=== PATIENT | female | born 1985 | race Caucasian/White ===

== ENCOUNTER 2017-08-31 19:19 | Inpatient (IN) ==
[2017-08-31] MEDS ORDERED: ONDANSETRON 4 MG/2 ML VIAL ONE (19:49)
[2017-08-31] MEDS ORDERED: HYDROmorphone 2 MG/1 ML ONE ×3 (19:49→23:07)
[2017-08-31 20:10] LABS: BASOPHILS # (AUTO) 0.04 10*3/UL; BASOPHILS % (AUTO) 0.2 % (0-1); EOSINOPHILS # (AUTO) 0.09 10*3/UL; EOSINOPHILS % (AUTO) 0.4 % (0-8); Hematocrit [HCT] 35.2 % (37.0-47.0); Hemoglobin [HGB] 12.1 g/dL (12.0-16.0); MEAN CORPUSCULAR HEMOGLOBIN 31.2 PG (27-31); MEAN CORPUSCULAR HGB CONC 34.4 g/dL (33-37); MEAN CORPUSCULAR VOLUME 90.7 FL (81-99); MONOCYTES # (AUTO) 1.51 10*3/UL (0.3-0.8); MONOCYTES % (AUTO) 6.4 % (5-15); NEUTROPHILS # (AUTO) 19.96 10*3/UL; NEUTROPHILS % (AUTO) 84.8 % (50-80); RED BLOOD COUNT 3.88 10^6/uL (4.20-5.40)
[2017-08-31 20:16] LABS: BLOOD UREA NITROGEN 10 mg/dL (7-22); BUN/CREATININE RATIO 14.28 (6-20); SERUM ALBUMIN 3.7 g/dL (3.5-4.8)
[2017-08-31 20:24] LABS: PLATELET MORPHOLOGY COMMENT NORMAL MORPHOLOGY (NORM); RBC MORPHOLOGY COMMENT NORMAL MORPHOLOGY (NORM); WBC MORPHOLOGY COMMENT NORMAL MORPHOLOGY (NORM)
[2017-08-31] MEDS ORDERED: FAMOTIDINE 20 MG/2 ML VIAL IVP ONE (20:25)
[2017-08-31] MEDS ORDERED: Lactated Ringers 2,000 ML PRIMARY IV ONE (20:25)
[2017-08-31] MEDS ORDERED: ceFAZolin Inj 2gm (Premix) 2 GM/50 ML BAG IV ONE (20:25)
[2017-08-31] MEDS ORDERED: Metoclopramide Inj 10 MG/2 ML VIAL ONE (20:25)
[2017-08-31] MEDS ORDERED: CITRIC ACID/SODIUM CITRATE 30 ML CUP PO ONE (20:25)
[2017-08-31] MEDS ORDERED: PENICILLIN G POTASSIUM 5,000,000 UNIT SDV IV ONE (20:35)
[2017-08-31] MEDS ORDERED: Sodium Chloride 0.9% 250 ML IV ONE (20:36)
[2017-08-31] MEDS ORDERED: Magnesium Sulfate 4gm (Premix) 4 GM/100 ML BAG IV ONE (20:37)
[2017-08-31] MEDS ORDERED: fentaNYL Inj 250 MCG/5 ML VIAL ONE (20:40)
[2017-08-31] MEDS ORDERED: MIDAZOLAM 5 MG/1 ML ONE (20:41)
[2017-08-31] MEDS ORDERED: Oxytocin 20 Units + LR 20 UNIT/1,000 ML BAG IV ONE ×3 (20:44→21:40)
[2017-08-31] MEDS ORDERED: Sodium Chloride 0.9% 1,000 ML ONE (20:52)
[2017-08-31] MEDS ORDERED: Magnesium Sulfate (Premix) 20 GM/500 ML BAG IV ONE (20:53)
[2017-08-31] MEDS ORDERED: ePHEDrine Inj 50 MG/ML AMP ONE (20:58)
[2017-08-31] MEDS ORDERED: PHENYLEPHRINE 10,000 MCG/1 ML VIAL ONE (20:59)
[2017-08-31] MEDS ORDERED: MISOPROSTOL 200 MCG TABLET ONE (21:25)
[2017-08-31] MEDS ORDERED: AZITHROMYCIN 500 MG VIAL IV ONE (21:41)
[2017-08-31] MEDS ORDERED: MISOPROSTOL 200 MCG TABLET RECTAL ONE (21:46)
[2017-08-31] MEDS ORDERED: SUGAMMADEX SODIUM 200 MG/2 ML VIAL IV ONE (22:07)
[2017-08-31] MEDS ORDERED: Famotidine Inj 20 MG in Normal Saline Flush 10 ML IVP PRN (22:17)
[2017-08-31] MEDS ORDERED: Naloxone Inj 0.01 MG, Sodium Chloride 0.9% vial 1 ML IVP PRN ×2 (22:17)
[2017-08-31] MEDS ORDERED: DIPH,PERTUSS,TET(ADACEL) VAC/PF 0.5 ML (Tdap) IM ONE (22:17)
[2017-08-31] MEDS ORDERED: CALCIUM CARBONATE 500 MG (TUMS) CHEWABLE TABLET PO PRN (22:17)
[2017-08-31] MEDS ORDERED: diphenhydrAMINE 50 MG/1 ML VIAL IV PRN (22:17)
[2017-08-31] MEDS ORDERED: ONDANSETRON 4 MG/2 ML VIAL IVP PRN ×2 (22:17→22:38)
[2017-08-31] MEDS ORDERED: NORMAL SALINE 10 ML SYRINGE FLUSH IVP PRN ×2 (22:17→22:38)
[2017-08-31] MEDS ORDERED: Nalbuphine Inj 20 MG/ML Ampule IVP PRN (22:17)
[2017-08-31] MEDS ORDERED: LANOLIN HPA 40 GM TUBE TOPICAL PRN (22:17)
[2017-08-31] MEDS ORDERED: diphenhydrAMINE 25 MG CAPSULE PO PRN (22:17)
[2017-08-31] MEDS ORDERED: NALOXONE 0.4 MG/1 ML VIAL IVP PRN ×2 (22:17→22:52)
--- NOTE | 2017-08-31 22:27 | OB.OP.NOTE ---
Operative Report Surgeon: Piero/Aren Technician Test Systems: Mo Garcia MD Anesthesia Type: General Anesthesia Provider: Anjali Frazier CRNA Surgery Date: 08/31/17 Preoperative Diagnosis: IUP about 25 weeks gestation. labor with advanced cervical dilation. Vaginal bleeding with Presumed placental abruption. Nonreassuring status with variable decelerations. The patient did not have care. by patient report. Baby was in footling breech presentation. Patient informed us that she had been using narcotics-Dilaudid today. Postoperative Diagnosis: Same. Confirmed placental abruption with anterior placenta with 200-300 mL of blood clot Procedure: General endotracheal anesthesia. Primary low transverse section with J incision on left side of low transverse incision. Delivery of double footling breech baby in 6 minutes Estimated Blood Loss (mL): 800 Fluids: 3000 mL LR. 1000 mL LR with Pitocin; second thousand cc of LR was started before the patient was transferred to the PACU. 225 mL of clear yellow urine was obtained. EBL was 800 mL. Mefoxin 2 g IV was given before surgery. Azithromycin 500 mg IV was given after cord clamp. Penicillin IV 5 million units was given when it was thought that the patient might deliver vaginally. Magnesium sulfate 4 g bolus was given 30 minutes prior to delivery for neuroprotection Complications: None apparent Findings at Surgery: Male infant with weight approx 750 grams and Apgars pending. ABG- pH 7.09 pCO2 66 HCO3 20 BE -10 Indications for the Procedure: The patient is a 32-year-old who presented first to the ER with low back and abdominal pain. Once they realized she was she was taken up to labor and delivery with vaginal bleeding and abdominal pain and contractions. The patient reported no care, was unsure of gestational age. The patient's cervix was found to be completely dilated with a bulging bag. Limited ultrasound showed the baby to be in a double footling breech presentation. It was thought that the patient had a placental abruption by her symptoms and by the Limited transabdominal ultrasound. The patient did inform Dr. Harry that she did take Dilaudid and did use narcotics during her . The patient was typed and crossed. The transport team was contacted and the transport was initiated for the NICU team to fly to [place], [place] to care for this baby and to take the baby to the NICU in [place], [place]. Although the patient was a with 4 vaginal deliveries, with the double footling breech presentation at around possibly 25 weeks gestation-the patient was not sure- the patient was consented by Dr. Harry for a section. Description of Procedure: The patient was brought to the operating room after risks, benefits, alternatives and indications were discussed with the patient and consent form had been signed. The patient had a Forbes catheter placed and urine was sent for urine drug screen. The patient was then placed in the dorsal supine position with a leftward tilt. The patient was then prepped sterilely. The patient was then draped sterilely. The patient then underwent general endotracheal anesthesia without complication. Anesthesia informed as when we could start the surgery. Dr. Harry incised a Pfannenstiel skin incision about 2 cm above the symphysis pubis in an arc. Then worked our way down to the fascia using the knife and then the Bovie and blunt dissection. The fascia was nicked in the midline and then extended laterally bilaterally. Yobani clamps were placed on the superior aspect of the fascia and the fascia was dissected off of the rectus muscle using the Bovie and also bluntly. The same was done inferiorly. Dr. Harry was then able to enter the peritoneum bluntly and the peritoneum was stretched. The Truong retractor was then placed intra-abdominally after we ensured that there were no adhesions. The Truong retractor was then readied. At this time, the lower uterine segment was examined and appeared to be fairly thin. Therefore a low transverse uterine incision was made. After only a superficial incision was made, dark blood clot was obtained. The blood clot was removed and then we palpated the membranes and the membranes were ruptured bluntly. Clear fluid was noted. One leg was visualized, more clot was removed, the other leg was visualized. The uterine incision was then extended on the patient's left side using bandage scissors with my fingers inside the uterus to ensure that there were no parts in the way. This was extended up so that the baby could be delivered more easily. With both legs of the baby located, the baby was gently delivered in a double footling breech fashion. Gentle fundal pressure is also used. The baby was delivered to its hips and then back and then one shoulder and then the other shoulder was delivered and then the baby's head was delivered gently. The mouth and nose were bulb suctioned. The cord was clamped and cut. The baby was handed off to the waiting physician and nurses as well as respiratory therapy and anesthesia was also made available for intubation. A section of cord was obtained for cord gases later and then cord blood was obtained. And then the placenta delivered easily since there was a placental abruption. The uterus was then exteriorized and then using a lap sponge 3 the uterus was cleared of clot and debris and membranes. 0 Vicryl suture was used to close the extension that I created first 2 different layers. Continuous and locking suture was used. There was good hemostasis. The uterus did contract down well but because the patient had a significant narcotic use history, Methergine was not used. The patient was given 1000 g of Cytotec rectally by the operating room nurse at this time to allow for better contraction of the uterus. Secondary to the delivery but also the magnesium sulfate that was given for neural protection, there was slight atony of the uterus but not significant atony. 0 Vicryl suture was then used to close the low transverse uterine incision in the usual fashion -a running locking 0 Vicryl stitch. A second layer of 0 Vicryl suture was then used to close the low transverse uterine incision occluding the serosal layer. A third layer was used to close the serosal layer of the extension and there was good hemostasis for the entire incision. Posterior to the uterus was irrigated. The tubes and ovaries were examined and appeared normal. The incision was examined again and there was good hemostasis. The uterus was starting to clamp down well. The uterus was then placed back into the abdomen ensuring that the ovaries and tubes were not torsed. The right gutter was then irrigated and suctioned and then the left gutter was irrigated and suctioned and then the uterine incision was irrigated and suctioned and examined again and there was good hemostasis. The peritoneum was then grasped with some hemostats and then closed with 3-0 Vicryl suture starting superiorly at the angle and then closing in a continuous suture. The fascia and subfascial was then examined and irrigated and there was good hemostasis. The fascia was closed using 0 Vicryl suture starting from the right angle and going past the midline and then a new suture was used at the left angle and abutting the suture that started from the right. Both sutures were tied and then they were tied to each other. There was good approximation of the fascia. The subcutaneous tissue was then irrigated and a few areas were bovied and then closed with 3-0 Vicryl suture. The skin was then closed. Due to the fact that this surgery was done fairly rapidly, it was decided to use metal pasha instead of a sub-cuticular stitch or absorbable pasha. Metal apsha were used to close the incision. Silverlon dressing was then placed. ABD pad and then paper tape. The uterus was then expressed of any clot and debris and there was minimal dark blood. The uterus appeared to be clamped down well. The patient was awakened from her general endotracheal anesthesia and brought to the PACU in stable condition. The patient did receive IV penicillin initially thinking it might be a vaginal delivery and then the patient received Mefoxin 2 g IV before surgery and then azithromycin 500 mg after cord clamp. Secondary to the patient's history and the urgent and emergent need of the surgery, I may give 1 dose of Invanz or ertapenem-1 g IV tomorrow morning. Plan: The patient will be observed. The patient will be observed in the PACU and then in a room. The baby will be transported to NICU-most likely in [place], [place]. 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
[2017-08-31] MEDS ORDERED: Oxytocin 20 Units + LR 20 UNIT/1,000 ML BAG IV SCH (22:30)
[2017-08-31] MEDS ORDERED: KETOROLAC 15 MG/1 ML VIAL IVP SCH (22:30)
[2017-08-31] MEDS ORDERED: D5-LR 1,000 ML PRIMARY IV SCH (22:30)
[2017-08-31] MEDS ORDERED: HYDROmorphone 2 MG/1 ML IVP PRN (22:38)
[2017-08-31] MEDS ORDERED: LIDOCAINE W/ SODIUM BICARB 0.5 ML SYR SUBD PRN (22:38)
[2017-08-31] MEDS ORDERED: ATROPINE SULFATE 0.4 MG/1 ML VIAL IVP PRN (22:38)
[2017-08-31] MEDS ORDERED: fentaNYL Inj 100 MCG/2 ML VIAL IVP PRN (22:38)
[2017-08-31] MEDS ORDERED: Ondansetron ODT Tab 8 MG TAB PO PRN (22:38)
[2017-08-31 22:39] LABS: URINE SAMPLE TYPE VOIDED SPECIMEN; URINE SPECIFIC GRAVITY - MAN 1.012
--- NOTE | 2017-08-31 22:41 | CRNA.PROGR ---
Anesthesia Time - - Start date: 08/31/17 End date: 08/31/17 - Procedure/Recovery Time Anesthesia : Time In: 20:47 Anesthesia : Time Out: 22:15 Anesthesia : Total Time: 88 - Total Anesthesia Time Total Anesthesia Time (minutes): 88 - Other Weight: 58.967 kg Height: 5 ft Body Mass Index (BMI): 25.4 Physical Status: P3 ( labor, competely dialated-breech presentation. Opiate dependant. Poss abruption)
--- NOTE | 2017-08-31 22:42 | CRNA.PROGR ---
Anesthesia Recovery Phase I - Post Anesthesia Evaluation Patient's Condition on Arrival in Phase I: Stable Patient's Condition on Arrival in Phase II: Stable Pain Level: 2 (More pain when massaging fundus.)
--- NOTE | 2017-08-31 22:43 | CRNA.PROGR ---
Post Anesthesia Phase II - Post Anesthesia Phase II Patient Stable and Discharged To: Med/Surg Care Assumed By Surgeon: Tomi Younger MD Temperature: 97.2 F Pulse Rate: 82 Respiratory Rate: 14 Blood Pressure: 99/65 Pulse Ox: 100 Total Nicol Score at Discharge: 9 Post Anesthesia Discharge Criteria Met: Yes
[2017-08-31] MEDS ORDERED: Lactated Ringers 1,000 ML PRIMARY IV SCH (22:45)
[2017-08-31 22:51] LABS: AMPHETAMINE SCREEN POSITIVE (NEG); CANNABINOID SCREEN,URINE NEGATIVE (NEG); COCAINE SCREEN NEGATIVE (NEG); METHADONE URINE SCREEN NEGATIVE (NEG); METHAMPHETAMINES SCREEN,URINE POSITIVE (NEG); OPIATE SCREEN,URINE POSITIVE (NEG); TRICYCLIC ANTIDEPRESSANT,URINE NEGATIVE (NEG)
[2017-08-31 22:52] LABS: BILIRUBIN,URINE NEGATIVE (NEG); CLARITY,URINE CLEAR (CLEAR); COLOR,URINE YELLOW (Y); GLUCOSE, URINE (UA) 100 mg/dL (NEG); OCCULT BLOOD,URINE NEGATIVE (NEG); PROTEIN,URINE NEGATIVE (NEG); URINE SAMPLE TYPE VOIDED SPECIMEN
[2017-08-31] MEDS ORDERED: PCA-Peripheral (Reflex Set) 1 EACH MIS IV PRN (22:52)
[2017-08-31 23:05] LABS: HIV ANTIBODY NEGATIVE (N); HIV-1 P24 ANTIGEN NEGATIVE (N)
[2017-09-01] MEDS ORDERED: LANOLIN HPA 40 GM TUBE TOPICAL PRN (00:06)
[2017-09-01] MEDS ORDERED: oxyCODONE-ACETAMINOPHEN 5-325 TAB PO PRN (00:06)
[2017-09-01] MEDS ORDERED: NALOXONE 0.4 MG/1 ML VIAL IVP PRN ×2 (00:06→00:14)
[2017-09-01] MEDS ORDERED: CALCIUM CARBONATE 500 MG (TUMS) CHEWABLE TABLET PO PRN (00:06)
[2017-09-01] MEDS ORDERED: ONDANSETRON 4 MG/2 ML VIAL IVP PRN (00:06)
[2017-09-01] MEDS ORDERED: Famotidine Inj 20 MG in Normal Saline Flush 10 ML IVP PRN (00:06)
[2017-09-01] MEDS ORDERED: Nalbuphine Inj 20 MG/ML Ampule IVP PRN (00:06)
[2017-09-01] MEDS ORDERED: diphenhydrAMINE 25 MG CAPSULE PO PRN (00:06)
[2017-09-01] MEDS ORDERED: diphenhydrAMINE 50 MG/1 ML VIAL IV PRN (00:06)
[2017-09-01] MEDS ORDERED: DIPH,PERTUSS,TET(ADACEL) VAC/PF 0.5 ML (Tdap) IM ONE (00:06)
[2017-09-01] MEDS ORDERED: Naloxone Inj 0.01 MG, Sodium Chloride 0.9% vial 1 ML IVP PRN ×2 (00:06)
[2017-09-01] MEDS ORDERED: Oxytocin 20 Units + LR 20 UNIT/1,000 ML BAG IV SCH (00:15)
[2017-09-01] MEDS ORDERED: HYDROmorphone/PF/PCA 9 MG/30 ML IV SCH (00:15)
[2017-09-01] MEDS: D5-LR 1,000 ML PRIMARY IV SCH ×3 (01:30→17:27)
--- NOTE | 2017-09-01 01:36 | OB.PROGRES ---
Interval History: 32 yo female sent up from the ER for abdominal pain, vaginal bleeding. Patient reports a h/o 4 prior pregnancies, vaginal deliveries, uncomplicated pregnancies. Last delivery 2 years ago. States she has had spotting for the last 4-5 months so may be 20-25 weeks . Has not received any care. 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 Associated vaginal bleeding. No LOF. Stated FM has never been very strong, doesn't know when she started feeling it. PMH - denies any HTN, diabetes, asthma Meds - none NKDA SH - Hesitantly admits to pill use, states last had dilaudid this morning FH - did not ask Objective - Cervical Exam Cervical Exam: complete, bulging bag, bright red blood Heart Rate: 130s to 150s, difficult to trace at times. Dropped to 100s just prior to going back to OR - Labs CBC and BMP: 08/31/17 19:25 08/31/17 19:25 - Vital Signs Last Taken Vital Signs: Vital Signs - Last Taken Temperature 97.5 F 08/31/17 23:20 Pulse Rate 83 08/31/17 23:20 Respiratory Rate 14 08/31/17 23:20 Blood Pressure 127/83 08/31/17 23:20 Pulse Ox 100 08/31/17 23:20 Abdomen tender, fundal height probably around 28cm - Additional Details Additional Details: Informal bedside u/s revealed footling breech, anterior placenta, concern possible abruption. Very quick BPD estimate of 6.92cm. Assessment and Plan - Patient Problems (1) labor Current Visit: Yes Status: Acute Code(s): O60.00 - labor without delivery, unspecified trimester (2) Breech presentation Current Visit: Yes Status: Acute Code(s): O32.1XX0 - Maternal care for breech presentation, not applicable or unspecified (3) Placental abruption in second trimester Current Visit: Yes Status: Acute Code(s): O45.92 - Premature separation of placenta, unspecified, second trimester Support Text: 32 yo at approx 25 weeks gestation in active labor, breech presentation , and possible abruption. This was all discussed with the patient and her SO. Even with her history of 4 vaginal deliveries, given the footling breech and possible abruption with decreasing heart tones discussed recommended proceeding with primary LTCS. Given uncertain dating we did discuss with patient the potential for this to be at a gestational age that is not viable. Patient consented in both written and verbal form. -Given 4 grams of Mag bolus for neuroprotection -PCN initially ordered, but proceeded with Mefoxin after decision made to deliver via -Patient typed and crossed x2 units -Proceeded urgently to OR for primary LTCS - panel ordered postop, urine drug screen ordered
[2017-09-01] MEDS: KETOROLAC 15 MG/1 ML VIAL IVP SCH ×4 (03:32→20:15)
--- NOTE | 2017-09-01 04:14 | PDOC ---
Abdomen/Flank HPI - General Chief Complaint: Abdomen Pain Stated Complaint: BACK TO ABD PAIN Date Seen by Provider: 08/31/17 Time Seen by Provider: 19:40 Source: POSITIVE: Patient Exam Limitations: POSITIVE: Clinical condition Nurse's Notes Reviewed & Considered: Yes - History of Present Illness Initial Comments: The patient is a 32-year-old female. She states that for the past 2-3 hours she has had lower abdominal pain. She states the onset of her pain was fairly abrupt. She's also noticed some vaginal bleeding for the last 2 hours. She states her pain is "like I had when I had my kidney stones". She states she is not sure when her last normal. Was and that her periods are usually "irregular ". She sexually active. She has no history of abdominal surgery. She is 4 para 4 aborta 1. No associated vomiting or diarrhea. No melena, hematochezia, hematemesis, dysuria, or hematuria. No fevers or chills. Body Location Affected: REPORTS: Abdomen Timing: REPORTS: Gradual, Changing Over Time Duration: 1-3 hours (2-3 hours) Severity: Severe Quality: REPORTS: "Pain" Abdominal Pain Onset Location: REPORTS: Other (Lower abdomen) Abdominal Pain Radiation: REPORTS: No radiation Context: REPORTS: None Modifying Factors: improves with: Nothing Associated Symptoms: DENIES: Denies symptoms, Back pain, Bloody Emesis, Chest pain, Coffee Grounds Emesis, Chills, Diaphoresis, Fever, Fatigue, Headache, Heartburn, Loss of Appetite, Nausea, Rash, Shortness of breath, Swelling/mass in abdomen, Syncope, Testicular Pain, Vomiting, Weakness, Grossly Bloody Diarrhea, Constipation, Diarrhea, Dysuria, Incontinent Stool, Incontinent Urine , Mucous Diarrhea, Difficulty Walking, Dizziness, Light Headedness, Numbness, Other Similar Symptoms Previously: No Recent Care Received: REPORTS: Denies Any Prior Injuries Related to Current Complaint?: No - Patient Home Medications Home Medications: Home Medications NK [NK] 08/31/17 - Patient Allergies Allergies/Adverse Reactions: Allergies 3 Allergy/AdvReac Type Severity Reaction Status Date / Time No Known Allergies Allergy Verified 08/31/17 19:25 Past Medical History - heen HEENT History: Denies History Cardiovascular History: Denies History Respiratory History: Denies History Gastrointestinal History: Denies History Genitourinary History: Kidney Stones Musculoskeletal History: Denies History Neurological History: Denies History Blood Disorders: Denies History Psychiatric History: Denies History Additional Female Reproductive History: 4, para 4 aborta 0. Does not know when her last normal period was. Obstetrical History: Other (please comment) (Menstrual irregularity) : 4 Para: 4 Cancer History: Denies History In Past Year Been Physically Harmed or Verbally Threatened: No History of MDRO: No History of Other Communicable Diseases: No History of Exposure to Communicable Disease: No Tobacco Use: Current Every Day Smoker Previous Surgical History: No Past Medical History Reviewed: Reviewed - No Changes ROS - Limitations ROS Limitations: No Limitations Constitution: REPORTS: Denies Symptoms Cardiovascular: REPORTS: Denies Cardiac Symptoms Respiratory: REPORTS: Denies Resp Symptoms Neurological: REPORTS: Denies Neuro Symptoms Gastrointestinal: REPORTS: Abdominal Pain Endocrine: REPORTS: Denies Symptoms Musculoskeletal: REPORTS: Denies MS Symptoms Genitourinary: REPORTS: Other (Vaginal bleeding 2 hours) Eyes: REPORTS: Denies Symptoms ENT: REPORTS: Denies Symptoms Skin: REPORTS: Denies Skin Symptoms Lympathic: REPORTS: Denies Lympathic Symptoms Immunologic: POSITIVE: Denies Symptoms Psychiatric: POSITIVE: Denies Psych Symptoms Abdominal/Flank Pain PE - General Appearance General Appearance: POSITIVE: Alert, Cooperative, No Evidence of Trauma, Moderate Distress. NEGATIVE: No Acute Distress - HEENT HEENT: POSITIVE: Head Inspection Nml, Eyes Inspection Nml, Ears Inspection Nml, Nose Inspection Nml, Oral/Dental Inspect. Nml, Pharynx Inspect. Nml, PERRL, EOMI - Neck Neck: POSITIVE: Normal Inspection, No Apparent Injury - Cardiovascular Cardiovascular: POSITIVE: Regular Rate and Rhythm, Heart Sounds Normal, Equal Pulses, Strong Pulses Peripheral Pulses: Radial (R): 2+, Radial (L): 2+ - Chest Chest: POSITIVE: Non Tender - Abdomen Abdomen: Normal Bowel Sounds: (All Quadrants), No Splenomegaly: (All Quadrants) , No Hepatomegaly: (All Quadrants), No Guarding: (All Quadrants), No Rebound: ( All Quadrants), No Palpable Pulse: (All Quadrants), No Palpabale Mass: (All Quadrants) Additional Abdominal Details: Abdominal examination reveals an enlarged uterus, enlarged above the umbilicus. Patient is in active labor. heart tones present, 155 for minute. 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 Abdomen Progress - Results Reviewed by me Lab Results Reviewed by Me: No (labs were drawn in the emergency room. Patient referred to labor and deliv) CBC and BMP: 08/31/17 19:25 08/31/17 19:25 - Patient's Progress Pain Medication Addressed: POSITIVE: Yes School/Work Release Addressed: POSITIVE: Not Applicable (Patient given 2 mg of Dilaudid) Re-examine Time: 20:00 Re-Examine Comment: Patient medicated for pain as above. Patient taken to labor and delivery in active labor. Status: POSITIVE: Unchanged - Consult Consult (If Yes, Name of Consulting MD & Time Called): Yes (Dr. Tineo, OB/ [facility], 1999) Consulting MD will see pt:: POSITIVE: Other (Will meet patient in labor and delivery) Counseled: POSITIVE: Patient, RE: DX, RE: Need for F/U Patient Care Time - Estimated PCT Patient Care Time (In Minutes): 20 Vital Signs - Recent Vital Signs Vital Signs: Vital Signs (Last 8 hours) Temp Pulse Resp BP Pulse Ox 09/01/17 03:00 20 97 09/01/17 01:00 20 97 08/31/17 23:20 97.5 F 83 14 127/83 100 08/31/17 23:10 97.5 F 80 12 117/81 100 08/31/17 23:00 97.5 F 83 15 107/75 97 08/31/17 22:55 97.0 F 82 12 107/72 100 08/31/17 22:46 97.0 F 76 16 109/77 100 08/31/17 22:43 97.2 F 82 14 99/65 100 08/31/17 22:40 97.2 F 82 12 107/72 100 08/31/17 22:35 97.2 F 77 14 107/70 100 08/31/17 22:30 97.2 F 82 14 99/65 100 08/31/17 22:25 97.0 F 84 15 105/68 100 08/31/17 22:20 97.0 F 89 17 103/58 99 08/31/17 22:15 97.0 F 84 14 99/54 92 08/31/17 22:11 96.9 F 89 15 98/52 92 - VS Reviewed Vital Signs Reviewed: Yes Discharge Clinical Impression: labor Discharge Disposition: Admit to Inpatient Condition: Fair Date Decision to Admit to Inpatient: 08/31/17 Time Decision to Admit to Inpatient: 19:55
[2017-09-01] MEDS ORDERED: LIDOCAINE HCL 2 % 10 ML JELLY URO-JECT TOPICAL PRN (05:36)
[2017-09-01 05:42] LABS: Hematocrit [HCT] 27.5 % (37.0-47.0); Hemoglobin [HGB] 9.1 g/dL (12.0-16.0); MEAN CORPUSCULAR HEMOGLOBIN 30.7 PG (27-31); MEAN CORPUSCULAR HGB CONC 33.1 g/dL (33-37); MEAN CORPUSCULAR VOLUME 92.9 FL (81-99); MEAN PLATELET VOLUME 11.4 FL (7.4-12.2); RED BLOOD COUNT 2.96 10^6/uL (4.20-5.40)
--- NOTE | 2017-09-01 08:50 | OB.PROGRES ---
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 Denies COLE, vision changes, calf pain. Today she reports she was unaware of the . Thought she was passing a kidney stone but knew something was different when she started having vaginal bleeding. Patient asked how the baby was doing, and was updated Objective - General General Appearance: POSITIVE: No Acute Distress, Cooperative - Cardiovacular Cardiovascular Exam: POSITIVE: RRR Edema: No Pedal Edema Extremities: Negative Joan's - Bilaterally - Respiratory Respiratory Exam: POSITIVE: Clear to Auscultation - Bilaterally, Breathing Non Labored - Abdomen Bowel Sounds: Hypoactive Abdominal Wound Assessment: Silverlone Dressing - Fundus/Lochia/Perineum Uterus Consistency: Firm Uterus Position: POSITIVE: At Umbilicus Lochia Amount: Small 10-25 ml Lochia Color: Rubra/Red Assesstment / Plan (1) labor Current Visit: Yes Status: Acute (2) Breech presentation Current Visit: Yes Status: Acute (3) Placental abruption in second trimester Current Visit: Yes Status: Acute Support Text: 32 yo G5 now [id number], POD 1 s/p primary LTCS for breech presentation under general anesthesia. 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 Given h/o drug use, her pain may ultimately be difficult to cover, but at this time well controlled. -Postop anemia due to blood loss - asymptomatic currently, will follow closely and ultimately start iron -Post op leukocytosis - WBC up from 23.5 to 32. Urine did not show e/o UTI at admission, appropriate fundal tenderness today, afebrile, VSS. Will go ahead and start Ertapenem 1g IV daily. Recheck of her WBC did show a decrease. -Labs from ER did show elevated ALT 116/ AST 267. Repeat LFTs ordered, will check Hep C as well. Hep B was negative. -DFS was contacted given initial UDS positive for meth/amphetamines/opioids. -Patient interested in d/c as soon as stable to go to [place] to be with her baby. Perhaps at 48 hours .
[2017-09-01] MEDS ORDERED: Prenatal Multivitamin Tab 1 TAB TAB PO SCH (09:00)
[2017-09-01] MEDS ORDERED: DOCUSATE 100 MG CAPSULE PO SCH (09:00)
[2017-09-01] MEDS: Ertapenem Inj 1 GM in Sodium Chloride 0.9% 100 ML IV SCH (09:50)
[2017-09-01] MEDS ORDERED: Influenza 17-18 Vaccine (6mo+) Quad 60mcg/0.5ml PF IM ONE (10:11)
[2017-09-01 10:21] LABS: Hematocrit [HCT] 24.1 % (37.0-47.0); Hemoglobin [HGB] 8.1 g/dL (12.0-16.0); MEAN CORPUSCULAR HEMOGLOBIN 31.2 PG (27-31); MEAN CORPUSCULAR HGB CONC 33.6 g/dL (33-37); MEAN CORPUSCULAR VOLUME 92.7 FL (81-99); MEAN PLATELET VOLUME 10.5 FL (7.4-12.2); RED BLOOD COUNT 2.6 10^6/uL (4.20-5.40)
--- NOTE | 2017-09-01 11:36 | CRNA.PROGR ---
Anesthesia Note - Progress Notes Anesthesia Progress Note: Sitting up in chair. Very comfortable with Dilaudid DIGITAL COMMENTATOR pump. Demand dose only. No nausea. Forbes still in, concentrated urine present. Laboratory Results 08/31/17 08/31/17 08/31/17 Range/Units 19:25 19:25 19:25 WBC 23.54 H (4.8-10.8) 10^3/uL RBC 3.88 L (4.20-5.40) 10^6/uL Hgb 12.1 (12.0-16.0) g/dL Hct 35.2 L (37.0-47.0) % MCV 90.7 (81-99) FL MCH 31.2 H (27-31) PG MCHC 34.4 (33-37) g/dL RDW Std Deviation 42.2 (39-50) fL RDW Coeff of Darnell 13.2 (11.5-14.5) % Plt Count 216 (140-350) 10*3/uL MPV 11.0 (7.4-12.2) FL Immature Gran % (Auto) 1.0 (0-5) % Neut % (Auto) 84.8 H (50-80) % Lymph % (Auto) 7.2 L (10-50) % [place] % (Auto) 6.4 (5-15) % Eos % (Auto) 0.4 (0-8) % Baso % (Auto) 0.2 (0-1) % Immature Gran # (Auto) 0.24 10*3/UL Neut # (Auto) 19.96 10*3/UL Lymph # (Auto) 1.70 10*3/uL [place] # (Auto) 1.51 H (0.3-0.8) 10*3/UL Eos # (Auto) 0.09 10*3/UL Baso # (Auto) 0.04 10*3/UL WBC Morphology Comment Normal morphology (NORM) Plt Morphology Comment Normal morphology (NORM) RBC Morph Comment Normal morphology (NORM) Sodium 136 (135-145) meq/L Potassium 3.7 L (3.8-5.2) meq/L Chloride 103 (98-112) meq/L Carbon Dioxide 22 L (23-33) meq/L Anion Gap 11 (5-20) BUN 10 (7-22) mg/dL Creatinine 0.7 (0.50-1.20) mg/dL Estimated GFR > 60 (>60 ml/min/1.73m(2)) BUN/Creatinine Ratio 14.28 (6-20) Glucose 165 H (78-110) mg/dL Calculated Osmolality 284.0 (267-292) mOsm/kg Calcium 8.9 (8.7-10.7) mg/dL Total Bilirubin 0.7 (0.3-1.2) mg/dL AST 116 H (8-39) IU/L ALT 267 H (9-52) IU/L Alkaline Phosphatase 179 H (38-126) IU/L Total Protein 7.3 (6.1-8.0) g/dL Albumin 3.7 (3.5-4.8) g/dL Globulin 3.7 (2.50-4.10) g/dL Albumin/Globulin Ratio 1.00 L (1.3-2.0) mg/g HCG, Quant 34015 mIU/ML Ur Collection Type Urine Color (Y) Urine Clarity (CLEAR) Urine pH (5.0-8.5) Ur Specific [place] (1.005-1.030) U Specif Grav (Refrac) Urine Protein (NEG) mg/dl Urine Glucose (UA) (NEG) mg/dL Urine Ketones (NEG) Urine Occult Blood (NEG) Urine Nitrate (NEG) Urine Bilirubin (NEG) Urine Urobilinogen (0.2) EU/dL Ur Leukocyte Esterase (NEG) Urine Opiates Screen (NEG) Ur Buprenorphine (NEG) Ur Oxycodone Screen (NEG) Urine Methadone Screen (NEG) Ur Propoxyphene Screen (NEG) Ur Barbiturates Screen (NEG) U Tricyclic Antidepress (NEG) Phencyclidine Screen (NEG) Amphetamines Screen (NEG) U Methamphetamines Scrn (NEG) U Benzodiazepines Scrn (NEG) Urine Cocaine Screen (NEG) U Cannabinoids Screen (NEG) Hep Bs Antigen (<1.0) HIV 1&2 Antibody Rapid (N) HIV P24 Antigen (N) Rubella IgG Antibody (0-9999) IU/mL Blood Type Antibody Screen Crossmatch 08/31/17 08/31/17 08/31/17 Range/Units 20:10 22:20 22:21 WBC (4.8-10.8) 10^3/uL RBC (4.20-5.40) 10^6/uL Hgb (12.0-16.0) g/dL Hct (37.0-47.0) % MCV (81-99) FL MCH (27-31) PG MCHC (33-37) g/dL RDW Std Deviation (39-50) fL RDW Coeff of Darnell (11.5-14.5) % Plt Count (140-350) 10*3/uL MPV (7.4-12.2) FL Immature Gran % (Auto) (0-5) % Neut % (Auto) (50-80) % Lymph % (Auto) (10-50) % [place] % (Auto) (5-15) % Eos % (Auto) (0-8) % Baso % (Auto) (0-1) % Immature Gran # (Auto) 10*3/UL Neut # (Auto) 10*3/UL Lymph # (Auto) 10*3/uL [place] # (Auto) (0.3-0.8) 10*3/UL Eos # (Auto) 10*3/UL Baso # (Auto) 10*3/UL WBC Morphology Comment (NORM) Plt Morphology Comment (NORM) RBC Morph Comment (NORM) Sodium (135-145) meq/L Potassium (3.8-5.2) meq/L Chloride (98-112) meq/L Carbon Dioxide (23-33) meq/L Anion Gap (5-20) BUN (7-22) mg/dL Creatinine (0.50-1.20) mg/dL Estimated GFR (>60 ml/min/1.73m(2)) BUN/Creatinine Ratio (6-20) Glucose (78-110) mg/dL Calculated Osmolality (267-292) mOsm/kg Calcium (8.7-10.7) mg/dL Total Bilirubin (0.3-1.2) mg/dL AST (8-39) IU/L ALT (9-52) IU/L Alkaline Phosphatase (38-126) IU/L Total Protein (6.1-8.0) g/dL Albumin (3.5-4.8) g/dL Globulin (2.50-4.10) g/dL Albumin/Globulin Ratio (1.3-2.0) mg/g HCG, Quant mIU/ML Ur Collection Type Voided specimen Voided specimen Urine Color Yellow (Y) Urine Clarity Clear (CLEAR) Urine pH 7.0 (5.0-8.5) Ur Specific [place] 1.010 (1.005-1.030) U Specif Grav (Refrac) 1.012 Urine Protein Negative (NEG) mg/dl Urine Glucose (UA) 100 (NEG) mg/dL Urine Ketones 40 (NEG) Urine Occult Blood Negative (NEG) Urine Nitrate Negative (NEG) Urine Bilirubin Negative (NEG) Urine Urobilinogen 1.0 (0.2) EU/dL Ur Leukocyte Esterase Negative (NEG) Urine Opiates Screen Positive H (NEG) Ur Buprenorphine Negative (NEG) Ur Oxycodone Screen Negative (NEG) Urine Methadone Screen Negative (NEG) Ur Propoxyphene Screen Negative (NEG) Ur Barbiturates Screen Negative (NEG) U Tricyclic Antidepress Negative (NEG) Phencyclidine Screen Negative (NEG) Amphetamines Screen Positive H (NEG) U Methamphetamines Scrn Positive H (NEG) U Benzodiazepines Scrn Negative (NEG) Urine Cocaine Screen Negative (NEG) U Cannabinoids Screen Negative (NEG) Hep Bs Antigen (<1.0) HIV 1&2 Antibody Rapid (N) HIV P24 Antigen (N) Rubella IgG Antibody (0-9999) IU/mL Blood Type B POSITIVE Antibody Screen Negative Crossmatch See Detail 08/31/17 08/31/17 09/01/17 Range/Units 22:41 22:41 04:10 WBC 31.97 H* (4.8-10.8) 10^3/uL RBC 2.96 L (4.20-5.40) 10^6/uL Hgb 9.1 L (12.0-16.0) g/dL Hct 27.5 L (37.0-47.0) % MCV 92.9 (81-99) FL MCH 30.7 (27-31) PG MCHC 33.1 (33-37) g/dL RDW Std Deviation 42.1 (39-50) fL RDW Coeff of [place]arn[place] 13.2 (11.5-14.5) % Plt Count 198 (140-350) 10*3/uL MPV 11.4 (7.4-12.2) FL Immature Gran % (Auto) (0-5) % Neut % (Auto) (50-80) % Lymph % (Auto) (10-50) % [place] % (Auto) (5-15) % Eos % (Auto) (0-8) % Baso % (Auto) (0-1) % Immature Gran # (Auto) 10*3/UL Neut # (Auto) 10*3/UL Lymph # (Auto) 10*3/uL [place] # (Auto) (0.3-0.8) 10*3/UL Eos # (Auto) 10*3/UL Baso # (Auto) 10*3/UL WBC Morphology Comment (NORM) Plt Morphology Comment (NORM) RBC Morph Comment (NORM) Sodium (135-145) meq/L Potassium (3.8-5.2) meq/L Chloride (98-112) meq/L Carbon Dioxide (23-33) meq/L Anion Gap (5-20) BUN (7-22) mg/dL Creatinine (0.50-1.20) mg/dL Estimated GFR (>60 ml/min/1.73m(2)) BUN/Creatinine Ratio (6-20) Glucose (78-110) mg/dL Calculated Osmolality (267-292) mOsm/kg Calcium (8.7-10.7) mg/dL Total Bilirubin (0.3-1.2) mg/dL AST (8-39) IU/L ALT (9-52) IU/L Alkaline Phosphatase (38-126) IU/L Total Protein (6.1-8.0) g/dL Albumin (3.5-4.8) g/dL Globulin (2.50-4.10) g/dL Albumin/Globulin Ratio (1.3-2.0) mg/g HCG, Quant mIU/ML Ur Collection Type Urine Color (Y) Urine Clarity (CLEAR) Urine pH (5.0-8.5) Ur Specific [place] (1.005-1.030) U Specif Grav (Refrac) Urine Protein (NEG) mg/dl Urine Glucose (UA) (NEG) mg/dL Urine Ketones (NEG) Urine Occult Blood (NEG) Urine Nitrate (NEG) Urine Bilirubin (NEG) Urine Urobilinogen (0.2) EU/dL Ur Leukocyte Esterase (NEG) Urine Opiates Screen (NEG) Ur Buprenorphine (NEG) Ur Oxycodone Screen (NEG) Urine Methadone Screen (NEG) Ur Propoxyphene Screen (NEG) Ur Barbiturates Screen (NEG) U Tricyclic Antidepress (NEG) Phencyclidine Screen (NEG) Amphetamines Screen (NEG) U Methamphetamines Scrn (NEG) U Benzodiazepines Scrn (NEG) Urine Cocaine Screen (NEG) U Cannabinoids Screen (NEG) Hep Bs Antigen 0.08 (<1.0) HIV 1&2 Antibody Rapid Negative (N) HIV P24 Antigen Negative (N) Rubella IgG Antibody 14.0 (0-9999) IU/mL Blood Type Antibody Screen Crossmatch 09/01/17 Range/Units 10:19 WBC 24.68 H (4.8-10.8) 10^3/uL RBC 2.60 L (4.20-5.40) 10^6/uL Hgb 8.1 L (12.0-16.0) g/dL Hct 24.1 L (37.0-47.0) % MCV 92.7 (81-99) FL MCH 31.2 H (27-31) PG MCHC 33.6 (33-37) g/dL RDW Std Deviation 42.4 (39-50) fL RDW Coeff of Darnell 13.2 (11.5-14.5) % Plt Count 192 (140-350) 10*3/uL MPV 10.5 (7.4-12.2) FL Immature Gran % (Auto) (0-5) % Neut % (Auto) (50-80) % Lymph % (Auto) (10-50) % [place] % (Auto) (5-15) % Eos % (Auto) (0-8) % Baso % (Auto) (0-1) % Immature Gran # (Auto) 10*3/UL Neut # (Auto) 10*3/UL Lymph # (Auto) 10*3/uL [place] # (Auto) (0.3-0.8) 10*3/UL Eos # (Auto) 10*3/UL Baso # (Auto) 10*3/UL WBC Morphology Comment (NORM) Plt Morphology Comment (NORM) RBC Morph Comment (NORM) Sodium (135-145) meq/L Potassium (3.8-5.2) meq/L Chloride (98-112) meq/L Carbon Dioxide (23-33) meq/L Anion Gap (5-20) BUN (7-22) mg/dL Creatinine (0.50-1.20) mg/dL Estimated GFR (>60 ml/min/1.73m(2)) BUN/Creatinine Ratio (6-20) Glucose (78-110) mg/dL Calculated Osmolality (267-292) mOsm/kg Calcium (8.7-10.7) mg/dL Total Bilirubin (0.3-1.2) mg/dL AST (8-39) IU/L ALT (9-52) IU/L Alkaline Phosphatase (38-126) IU/L Total Protein (6.1-8.0) g/dL Albumin (3.5-4.8) g/dL Globulin (2.50-4.10) g/dL Albumin/Globulin Ratio (1.3-2.0) mg/g HCG, Quant mIU/ML Ur Collection Type Urine Color (Y) Urine Clarity (CLEAR) Urine pH (5.0-8.5) Ur Specific [place] (1.005-1.030) U Specif Grav (Refrac) Urine Protein (NEG) mg/dl Urine Glucose (UA) (NEG) mg/dL Urine Ketones (NEG) Urine Occult Blood (NEG) Urine Nitrate (NEG) Urine Bilirubin (NEG) Urine Urobilinogen (0.2) EU/dL Ur Leukocyte Esterase (NEG) Urine Opiates Screen (NEG) Ur Buprenorphine (NEG) Ur Oxycodone Screen (NEG) Urine Methadone Screen (NEG) Ur Propoxyphene Screen (NEG) Ur Barbiturates Screen (NEG) U Tricyclic Antidepress (NEG) Phencyclidine Screen (NEG) Amphetamines Screen (NEG) U Methamphetamines Scrn (NEG) U Benzodiazepines Scrn (NEG) Urine Cocaine Screen (NEG) U Cannabinoids Screen (NEG) Hep Bs Antigen (<1.0) HIV 1&2 Antibody Rapid (N) HIV P24 Antigen (N) Rubella IgG Antibody (0-9999) IU/mL Blood Type Antibody Screen Crossmatch Note WBC. Intake and Output (24hr x 4 totals) 08/30/17 08/31/17 09/01/17 09/02/17 05:59 05:59 05:59 05:59 Intake Total 5715.2 / 5715.2 927 / 927 Output Total 1650 / 1650 300 / 300 Balance 4065.2 / 4065.2 627 / 627 Vital Signs - Last Taken Temperature 98.5 F 09/01/17 08:42 Pulse Rate 85 09/01/17 08:42 Respiratory Rate 18 09/01/17 05:20 Blood Pressure 110/56 09/01/17 08:42 Pulse Ox 99 09/01/17 09:30 No apparent anesthetic difficulties. Antibiotic dosage is reported to be increased d/t white count.
[2017-09-01] MEDS: NORMAL SALINE 10 ML SYRINGE FLUSH IVP PRN (14:33)
[2017-09-01 16:05] LABS: BLOOD UREA NITROGEN 8 mg/dL (7-22); SERUM ALBUMIN 2.1 g/dL (3.5-4.8)
[2017-09-01 16:48] LABS: HEMOGLOBIN A1C 5.06 % (4.2-6.0)
[2017-09-01] MEDS: oxyCODONE-ACETAMINOPHEN 5-325 TAB PO PRN ×2 (20:00→23:46)
[2017-09-01] MEDS ORDERED: IBUPROFEN 800 MG TABLET PO PRN (22:17)
[2017-09-02] MEDS: KETOROLAC 15 MG/1 ML VIAL IVP SCH (02:10)
[2017-09-02] MEDS: oxyCODONE-ACETAMINOPHEN 5-325 TAB PO PRN (04:41)
[2017-09-02 05:27] LABS: BLOOD UREA NITROGEN 11 mg/dL (7-22); BUN/CREATININE RATIO 15.71 (6-20); SERUM ALBUMIN 2.4 g/dL (3.5-4.8)
[2017-09-02 05:29] LABS: Hematocrit [HCT] 23.1 % (37.0-47.0); Hemoglobin [HGB] 7.3 g/dL (12.0-16.0); MEAN CORPUSCULAR HEMOGLOBIN 29.8 PG (27-31); MEAN CORPUSCULAR HGB CONC 31.6 g/dL (33-37); MEAN CORPUSCULAR VOLUME 94.3 FL (81-99); MEAN PLATELET VOLUME 11.2 FL (7.4-12.2); RED BLOOD COUNT 2.45 10^6/uL (4.20-5.40)
[2017-09-02] MEDS: NORMAL SALINE 10 ML SYRINGE FLUSH IVP PRN (09:02)
[2017-09-02] MEDS: Ertapenem Inj 1 GM in Sodium Chloride 0.9% 100 ML IV SCH (09:02)
[2017-09-02] MEDS: Senna/Docusate Tab 1 TAB TAB PO SCH ×2 (09:05→21:00)
[2017-09-02] MEDS: IBUPROFEN 800 MG TABLET PO PRN ×3 (09:05→23:18)
[2017-09-02] MEDS: Prenatal Multivitamin Tab 1 TAB TAB PO SCH (09:05)
[2017-09-02] MEDS: oxyCODONE IR Tab 5 MG TAB PO PRN ×2 (09:18→23:17)
--- NOTE | 2017-09-02 11:41 | OB.PROGRES ---
Subjective Post Op Day: 2 Pain Management: PO Forbes Catheter: No Flatus: Yes Diet: Regular Ambulating: Yes Concerns / Additional Information: Patient reports she is doing well this morning. Ambulating well. Pain is controlled. Appreciated getting a shower. Interested in going outside to smoke. I had a long discussion with the patient last night. She reports she had been sober for 8.5 years then moved to [place], [place] about 5 years ago where her mother lives/lived. States she didn't realize that there were so many drugs in that town and got in with the wrong crowd. 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 States she got into IVDU, had tried to be very careful. In the last year or so got into pills and didn't realize how addicting they were. She came to the [place] area about a month ago to get clean. States the first 2 weeks of withdrawal were terrible, had never been so sick. Then several days ago was going through her stuff and found some pills and meth that she didn't realize she had brought with her. She relapsed. Denies any alcohol use. Patient seems very interested in getting clean and staying clean. States her other 4 kids are with their father in [facility] and still in shock that she was . We discussed that the drug use was reported to DFS. We also discussed working up her transaminitis with a Hepatitis C test. Denies h/o liver disease, has not been tested for Hep C in the past but states there is an epidemic in [place] and really tried to be careful. Objective - General General Appearance: POSITIVE: No Acute Distress, Cooperative - Cardiovacular Cardiovascular Exam: POSITIVE: RRR Edema: +1 Pedal Edema Extremities: Negative Joan's - Bilaterally - Respiratory Respiratory Exam: POSITIVE: Clear to Auscultation - Bilaterally, Breathing Non Labored - Abdomen Bowel Sounds: Present Abdominal Wound Assessment: [place] Dressing - Fundus/Lochia/Perineum Uterus Consistency: Firm Uterus Position: POSITIVE: At Umbilicus Lochia Amount: Small 10-25 ml Lochia Color: Rubra/Red Assesstment / Plan (1) labor Current Visit: Yes Status: Acute (2) Breech presentation Current Visit: Yes Status: Acute (3) Placental abruption in second trimester Current Visit: Yes Status: Acute (4) Hepatitis C antibody positive in blood Current Visit: Yes Status: Acute (5) Intravenous drug use during in second trimester Current Visit: Yes Status: Acute Support Text: 32 yo G5 now P4105, POD 2 s/p primary LTCS for breech presentation under general anesthesia. -Pain controlled currently with oral motrin and oxycodone 5mg po q4-6 h prn. Patient trying to limit narcotic use given h/o drug abuse / addiction. APAP held given transaminitis. -Postop anemia due to blood loss - asymptomatic and VSS, will check CBC again in the morning, plan to transfuse if <7, otherwise ferrous gluconate bid -Post op leukocytosis - improved. WBC up from 23.5 to 32k postop, trending down now. Urine did not show e/o UTI at admission, appropriate fundal tenderness, afebrile, VSS. Will continue Ertapenem 1g IV daily through the weekend. -Transaminitis - HCV Ab did come back positive. H/o IVDU. Awaiting RNA PCR confirmation. RNA genotype ordered. Discussed with patient this is further reason to get clean, and stay clean as most require sobriety prior to treatment. -DFS was contacted given initial UDS positive for meth/amphetamines/opioids. -PPContraception - interested in a tubal ligation. Has had an IUD before, unfortunately had the complication of expulsion after 2 years so not interested in IUD. -Patient interested in d/c as soon as possible to go to [place] to be with her baby. Given the postop anemia and leukocytosis I discussed with her that I would prefer she stay one more night as she would not plan to go to [place] until tomorrow anyway. Will check labs early in the morning, give ertapenem just prior to d/c and d/c if stable tomorrow morning.
[2017-09-02] MEDS ORDERED: Influenza 17-18 Vaccine (6mo+) Quad 60mcg/0.5ml PF IM ONE (16:09)
[2017-09-02] MEDS: FERROUS GLUCONATE 324 MG TABLET PO SCH (21:00)
[2017-09-03 04:31] LABS: BASOPHILS # (AUTO) 0.04 10*3/UL; BASOPHILS % (AUTO) 0.3 % (0-1); EOSINOPHILS # (AUTO) 0.22 10*3/UL; EOSINOPHILS % (AUTO) 1.5 % (0-8); Hematocrit [HCT] 22.5 % (37.0-47.0); Hemoglobin [HGB] 7.4 g/dL (12.0-16.0); LYMPHOCYTES # (AUTO) 3.73 10*3/uL; MEAN CORPUSCULAR HGB CONC 32.9 g/dL (33-37); MEAN CORPUSCULAR VOLUME 94.1 FL (81-99); MEAN PLATELET VOLUME 10.6 FL (7.4-12.2); MONOCYTES # (AUTO) 1.12 10*3/UL (0.3-0.8); MONOCYTES % (AUTO) 7.8 % (5-15); NEUTROPHILS # (AUTO) 8.94 10*3/UL; PLATELET MORPHOLOGY COMMENT NORMAL MORPHOLOGY (NORM); RBC MORPHOLOGY COMMENT NORMAL MORPHOLOGY (NORM); RED BLOOD COUNT 2.39 10^6/uL (4.20-5.40); WBC MORPHOLOGY COMMENT NORMAL MORPHOLOGY (NORM)
[2017-09-03 04:40] LABS: BLOOD UREA NITROGEN 10 mg/dL (7-22); BUN/CREATININE RATIO 14.28 (6-20); SERUM ALBUMIN 2.3 g/dL (3.5-4.8)
[2017-09-03] MEDS: IBUPROFEN 800 MG TABLET PO PRN ×3 (07:18→22:24)
[2017-09-03] MEDS: NORMAL SALINE 10 ML SYRINGE FLUSH IVP PRN (08:01)
[2017-09-03] MEDS: Ertapenem Inj 1 GM in Sodium Chloride 0.9% 100 ML IV SCH (08:02)
[2017-09-03] MEDS: Prenatal Multivitamin Tab 1 TAB TAB PO SCH (08:13)
[2017-09-03] MEDS: Senna/Docusate Tab 1 TAB TAB PO SCH ×2 (08:14→22:24)
[2017-09-03] MEDS: FERROUS GLUCONATE 324 MG TABLET PO SCH ×2 (08:14→20:53)
--- NOTE | 2017-09-03 10:32 | OB.PROGRES ---
Subjective Post Op Day: 3 Pain Management: PO Forbes Catheter: No Flatus: Yes Diet: Regular [place] Feeding Method: Formula Feeding (Patient's baby is in the NICU in [place], [place]. The patient is not planning on breast-feeding herself. We are giving the baby donor breast milk currently.) Concerns / Additional Information: The patient states that she is not short of breath or lightheaded. Even when walking. Even when out smoking. Objective - General General Appearance: POSITIVE: No Acute Distress, Cooperative - Cardiovacular Cardiovascular Exam: POSITIVE: RRR (Occasional tachycardia recorded.) Extremities: Negative Joan's - Bilaterally - Respiratory Respiratory Exam: POSITIVE: Clear to Auscultation - Bilaterally - Abdomen Abdominal Wound Assessment: Silverlone Dressing Other Abdominal Exam Details: Abdomen with positive bowel sounds all 4 quadrants. Soft without guarding or rebound. Assesstment / Plan Assessment / Plan: Assessment: Postoperative day #3 status post urgent/emergent primary low transverse section with extension into the contractile portion of the uterus with a J extension. The patient's hemoglobin is 7.4 this morning and was 7.3 yesterday. Hemoglobin is stable. Patient's white count is 14-1/2 thousand compared to 15+ thousand yesterday. The patient's max white count was 31,000. Platelets are normal. Positive hepatitis C initial screening with Liver function tests are slightly improved Tobacco use Plan: I would like to continue the patient in the hospital today to observe her and then plan on discharging her tomorrow morning. I would like to check a CBC tomorrow morning to look at the patient's white count and also H&H. I did offer the patient blood transfusion but she states that she is asymptomatic. We will continue to follow the patient's vitals. The hospital social work therapist will also be able to talk with the patient tomorrow morning to help with the logistics since her baby is in the NICU in [place], [place]. The patient and I did discuss that if she were to have another that she should not have a trial labor and the patient Should have a repeat section even earlier than 39 weeks (with possible amniocentesis for lung maturity) secondary to the extension into the contractile portion of the uterus. The patient states that she would like permanent contraception and does not want any more children. This can be addressed at a later date. Discharge medications Will be oxycodone 5 m-2 tablets by mouth every 6 hours when necessary pain #30 will be dispensed and no refills. Ferrous sulfate 325 m tablet by mouth 3 times a day #90 and 1 refill Colace 100 mg 1 capsule by mouth twice a day to help prevent constipation secondary to the oxycodone #60 and 1 refill Ibuprofen 800 mg 1 tablet by mouth 3 times a day with food or milk for 5 days then 3 times a day as needed. Number 30 and 1 refill The patient may shower today. The patient was advised to be careful if she has a warm shower that she may become lightheaded. Somebody should be close by while she is showering.
[2017-09-03 21:47] VITALS: O2SAT 98
[2017-09-04 05:27] VITALS: BP 111/69; RESP 18; TEMP 98
[2017-09-04 05:30] LABS: Hematocrit [HCT] 22.9 % (37.0-47.0); Hemoglobin [HGB] 7.6 g/dL (12.0-16.0); MEAN CORPUSCULAR HEMOGLOBIN 31.1 PG (27-31); MEAN CORPUSCULAR HGB CONC 33.2 g/dL (33-37); MEAN CORPUSCULAR VOLUME 93.9 FL (81-99); MEAN PLATELET VOLUME 10.5 FL (7.4-12.2); RED BLOOD COUNT 2.44 10^6/uL (4.20-5.40)
[2017-09-04 06:51] LABS: BAND NEUTROPHILS % 2 % (0-10); BASOPHILS % (MANUAL) 0 % (0-1); EOSINOPHILS % (MANUAL) 0 % (0-8); MONOCYTES % (MANUAL) 8 % (0-12); NEUTROPHILS % (MANUAL) 64 % (50-80)
[2017-09-04 06:52] LABS: PLATELET MORPHOLOGY COMMENT NORMAL MORPHOLOGY (NORM); WBC MORPHOLOGY COMMENT SEE COMMENTS (NORM)
[2017-09-04 06:53] LABS: RBC MORPHOLOGY COMMENT SEE COMMENTS (NORM)
[2017-09-04] MEDS: IBUPROFEN 800 MG TABLET PO PRN (07:59)
[2017-09-04] MEDS ORDERED: DIPH,PERTUSS,TET(ADACEL) VAC/PF 0.5 ML (Tdap) IM ONE (08:55)
[2017-09-04] MEDS ORDERED: MEDROXYPROGESTERONE IM ONE (09:00)
--- NOTE | 2017-09-04 09:05 | DCSUMMARY ---
Hospitalization Summary Admit Date: 08/31/17 Discharge Date: 09/04/17 Primary Diagnosis:: s/p primary LTCS with J extension Secondary Diagnosis:: Abruption labor Breech presentation Methamphetamine and narcotic use Tobacco use DMPA admintistered for pp contraception Primary Surgery and Date: Primary LTCS with J extension on 08/31/17 Delivery Type: Hospital Course: 32 yo G5 now [id number] presented on the evening of 08/31/17 to the ER with lower abdominal pain, back pain and vaginal bleeding. Once her was determined, she was taken up to L&D. She was found to be complete with a bulging bag with bright red blood, more than bloody show. Patient was unaware of the , she thought she may be between 20-25 weeks gestation. Informal bedside u/s revealed footling breech with likely abruption. Informal BPD was 6.92 cm which was c/w >25 weeks. Decision then made to proceed with primary LTCS under general anesthesia. The lower uterine segment was quite thin so a low transverse incision was made initially, secondary to difficult extraction a J extension was carried up the L side of the uterus with bandage scissors. The was delivered after 6 minutes and handed off to the awaiting team. Infant was stabilized and sent to [place] via [facility]. Patien / Postop Complications: Postop Anemia - Hemoglobin dropped to the 7s postop, has been stable there. Patient completely asymptomatic. Does get slightly tachycardic with activity ( including going out to smoke). Started on ferrous gluconate tid. Postop Leukocytosis - s/p 3 days of IV ertapenem. WBC normal again. Blood cultures negative. No e/o UTI. No fevers. Patient did have 4 episodes of diarrhea yesterday, none again. She is still at risk for clostridium difficile colitis, so in the event diarrhea returns she should get tested. Drug use in - initial uds positive, confirmatory pending. Patient interested in getting clean. She is using oxycodone sparingly at this point for pain control. Hepatitic C Ab positive / Transaminitis - RNA confirmation, genotype and quant pending. PP Contraception - interested in tubal ligation. Given DMPA as a bridge in the meantime. J extension - patient counseled on the fact that she is not a candidate for labor in the future. If she were to get again, she will need a repeat , perhaps even before 39 weeks. Complications: Approx 750 gram male infant, Apgars 4,5,6. Infant was intubated here, UVC placed , started on Amp, Gent. Infant was then flown via [facility] to the NICU at [facility] in [place]. He has since been extubated, on bubble cpap. Overall seems to be doing well for what appears to be approx 27 weeks gestation. Exam - Vitals Vital Signs: Vital Signs Temperature 98 F Temperature Source Oral Pulse Rate [Pulse Oximeter] 83 Pulse Rate 100 Respiratory Rate 18 Blood Pressure [Right Arm] 111/69 Blood Pressure [Left Arm] 97/56 Blood Pressure 117/58 Pulse Ox 98 Oxygen Flow Rate 0 Oxygen Flow Rate [1 of 1] 10 Oxygen Delivery Method Room Air Height 5 ft Weight 130 lb - General General Appearance: No Acute Distress, Cooperative - Head Head Exam: Normal Inspection - Eye Eye Exam: POSITIVE: Normal Appearance - ENT ENT Exam: POSITIVE: Normal Exam - Neck Neck Exam: Normal Inspection - Respiratory Respiratory Exam: POSITIVE: Clear to Auscultation - Bilaterally, Breathing Non Labored - Cardiovascular Cardiovascular Exam: POSITIVE: RRR - GI/Abdominal GI/Abdominal Exam: POSITIVE: Normal Bowel Sounds, Soft Additional GI/Abdominal Exam Details: Uterus firm below umbilicus - Extremities Extremities Exam: POSITIVE: Negative Joan's sign, +1 Edema. NEGATIVE: Calf Tenderness - Neurological Neurological Exam: POSITIVE: Alert, Oriented x 3 - Psychiatric Psychiatric Exam: POSITIVE: Normal Affect, Normal Mood - Integumentary Integumentary Exam: POSITIVE: Normal Color Data Peritnent Studies: 08/31/17 08/31/17 08/31/17 19:25 19:25 22:20 WBC 23.54 H Hgb 12.1 Hct 35.2 L Plt Count 216 Neut % (Auto) 84.8 H Lymph % (Auto) 7.2 L Sodium 136 Potassium 3.7 L Chloride 103 Carbon Dioxide 22 L Anion Gap 11 BUN 10 Creatinine 0.7 Estimated GFR BUN/Creatinine Ratio 14.28 Glucose 165 H Mean Blood Glucose Hemoglobin A1c Calculated Osmolality 284.0 Calcium 8.9 Total Bilirubin 0.7 AST 116 H ALT 267 H Alkaline Phosphatase 179 H Total Protein 7.3 Albumin 3.7 Globulin 3.7 Albumin/Globulin Ratio 1.00 L Ur Collection Type Voided specimen Urine Color Yellow Urine Clarity Clear Urine pH 7.0 Ur Specific [place] 1.010 U Specif Grav (Refrac) Urine Protein Negative Urine Glucose (UA) 100 Urine Ketones 40 Urine Occult Blood Negative Urine Nitrate Negative Urine Bilirubin Negative Urine Urobilinogen 1.0 Ur Leukocyte Esterase Negative Urine Opiates Screen Ur Buprenorphine Ur Oxycodone Screen Urine Methadone Screen Ur Propoxyphene Screen Ur Barbiturates Screen U Tricyclic Antidepress Phencyclidine Screen Amphetamines Screen U Methamphetamines Scrn U Benzodiazepines Scrn Urine Cocaine Screen U Cannabinoids Screen Syphilis IgG Antibody Hep Bs Antigen Hepatitis C Antibody HIV 1&2 Antibody Rapid HIV P24 Antigen Rubella IgG Antibody 08/31/17 08/31/17 08/31/17 22:21 22:41 22:41 WBC Hgb Hct Plt Count Neut % (Auto) Lymph % (Auto) Sodium Potassium Chloride Carbon Dioxide Anion Gap BUN Creatinine Estimated GFR BUN/Creatinine Ratio Glucose Mean Blood Glucose Hemoglobin A1c Calculated Osmolality Calcium Total Bilirubin AST ALT Alkaline Phosphatase Total Protein Albumin Globulin Albumin/Globulin Ratio Ur Collection Type Urine Color Urine Clarity Urine pH Ur Specific [place] U Specif Grav (Refrac) 1.012 Urine Protein Urine Glucose (UA) Urine Ketones Urine Occult Blood Urine Nitrate Urine Bilirubin Urine Urobilinogen Ur Leukocyte Esterase Urine Opiates Screen Positive H Ur Buprenorphine Negative Ur Oxycodone Screen Negative Urine Methadone Screen Negative Ur Propoxyphene Screen Negative Ur Barbiturates Screen Negative U Tricyclic Antidepress Negative Phencyclidine Screen Negative Amphetamines Screen Positive H U Methamphetamines Scrn Positive H U Benzodiazepines Scrn Negative Urine Cocaine Screen Negative U Cannabinoids Screen Negative Syphilis IgG Antibody Hep Bs Antigen 0.08 Hepatitis C Antibody HIV 1&2 Antibody Rapid Negative HIV P24 Antigen Negative Rubella IgG Antibody 14.0 08/31/17 09/01/17 09/01/17 22:41 04:10 04:10 WBC 31.97 H* Hgb 9.1 L Hct 27.5 L Plt Count 198 Neut % (Auto) Lymph % (Auto) Sodium Potassium Chloride Carbon Dioxide Anion Gap BUN Creatinine Estimated GFR BUN/Creatinine Ratio Glucose Mean Blood Glucose 82.498 Hemoglobin A1c 5.06 Calculated Osmolality Calcium Total Bilirubin AST ALT Alkaline Phosphatase Total Protein Albumin Globulin Albumin/Globulin Ratio Ur Collection Type Urine Color Urine Clarity Urine pH Ur Specific [place] U Specif Grav (Refrac) Urine Protein Urine Glucose (UA) Urine Ketones Urine Occult Blood Urine Nitrate Urine Bilirubin Urine Urobilinogen Ur Leukocyte Esterase Urine Opiates Screen Ur Buprenorphine Ur Oxycodone Screen Urine Methadone Screen Ur Propoxyphene Screen Ur Barbiturates Screen U Tricyclic Antidepress Phencyclidine Screen Amphetamines Screen U Methamphetamines Scrn U Benzodiazepines Scrn Urine Cocaine Screen U Cannabinoids Screen Syphilis IgG Antibody Negative Hep Bs Antigen Hepatitis C Antibody HIV 1&2 Antibody Rapid HIV P24 Antigen Rubella IgG Antibody 09/01/17 09/01/17 09/02/17 10:19 19:09 04:40 WBC Hgb 8.1 L 7.3 L Hct 24.1 L 23.1 L Plt Count Neut % (Auto) Lymph % (Auto) Sodium Potassium Chloride Carbon Dioxide Anion Gap BUN Creatinine Estimated GFR BUN/Creatinine Ratio Glucose Mean Blood Glucose Hemoglobin A1c Calculated Osmolality Calcium Total Bilirubin AST ALT Alkaline Phosphatase Total Protein Albumin Globulin Albumin/Globulin Ratio Ur Collection Type Urine Color Urine Clarity Urine pH Ur Specific [place] U Specif Grav (Refrac) Urine Protein Urine Glucose (UA) Urine Ketones Urine Occult Blood Urine Nitrate Urine Bilirubin Urine Urobilinogen Ur Leukocyte Esterase Urine Opiates Screen Ur Buprenorphine Ur Oxycodone Screen Urine Methadone Screen Ur Propoxyphene Screen Ur Barbiturates Screen U Tricyclic Antidepress Phencyclidine Screen Amphetamines Screen U Methamphetamines Scrn U Benzodiazepines Scrn Urine Cocaine Screen U Cannabinoids Screen Syphilis IgG Antibody Hep Bs Antigen Hepatitis C Antibody 19.5 HIV 1&2 Antibody Rapid HIV P24 Antigen Rubella IgG Antibody 09/03/17 09/03/17 09/04/17 04:10 04:10 05:06 WBC 12.23 H Hgb 7.4 L 7.6 L Hct 22.5 L 22.9 L Plt Count 251 Neut % (Auto) Lymph % (Auto) Sodium 141 Potassium 4.4 Chloride 108 Carbon Dioxide 23 Anion Gap 10 BUN 10 Creatinine 0.7 Estimated GFR > 60 BUN/Creatinine Ratio 14.28 Glucose 77 L Mean Blood Glucose Hemoglobin A1c Calculated Osmolality 289.0 Calcium 9.2 Total Bilirubin 0.1 L AST 58 H ALT 155 H Alkaline Phosphatase 88 Total Protein 5.1 L Albumin 2.3 L Globulin 2.8 Albumin/Globulin Ratio 0.80 L Ur Collection Type Urine Color Urine Clarity Urine pH Ur Specific [place] U Specif Grav (Refrac) Urine Protein Urine Glucose (UA) Urine Ketones Urine Occult Blood Urine Nitrate Urine Bilirubin Urine Urobilinogen Ur Leukocyte Esterase Urine Opiates Screen Ur Buprenorphine Ur Oxycodone Screen Urine Methadone Screen Ur Propoxyphene Screen Ur Barbiturates Screen U Tricyclic Antidepress Phencyclidine Screen Amphetamines Screen U Methamphetamines Scrn U Benzodiazepines Scrn Urine Cocaine Screen U Cannabinoids Screen Syphilis IgG Antibody Hep Bs Antigen Hepatitis C Antibody HIV 1&2 Antibody Rapid HIV P24 Antigen Rubella IgG Antibody Patient Problems - Patient Problem List (1) labor Current Visit: Yes Status: Acute Code(s): O60.00 - labor without delivery, unspecified trimester Category: Medical (2) Breech presentation Current Visit: Yes Status: Acute Code(s): O32.1XX0 - Maternal care for breech presentation, not applicable or unspecified Category: Medical (3) Placental abruption in second trimester Current Visit: Yes Status: Acute Code(s): O45.92 - Premature separation of placenta, unspecified, second trimester Category: Medical (4) Hepatitis C antibody positive in blood Current Visit: Yes Status: Acute Code(s): R76.8 - Other specified abnormal immunological findings in serum Category: Medical (5) Intravenous drug use during in second trimester Current Visit: Yes Status: Acute Code(s): O99.322 - Drug use complicating , second trimester; F19.90 - Other psychoactive substance use, unspecified, uncomplicated Category: Medical (6) anemia Current Visit: Yes Status: Acute Code(s): O90.81 - Anemia of the puerperium Support Text: 32 yo s/p primary LTCS with J extension for breech presentation, labor. POD 4. Patient discharged with plan to go to [place] to see baby, the [facility] actually met her to arrest her. Rx's sent in to [facility], as [facility]. Patient will need her pasha taken out at approximately 1 week postop. Her HCV confirmation is still pending and will need followed up. Patient was given DMPA infection today for contraceptive bridge, will ultimately want sterilization. Meds: oxycodone 5 m-2 tablets by mouth every 4-6 hours when necessary pain #30 will be dispensed and no refills. Ferrous sulfate 325 m tablet by mouth 3 times a day #90 and 1 refill Colace 100 mg 1 capsule by mouth twice a day to help prevent constipation secondary to the oxycodone #60 and 1 refill Ibuprofen 800 mg 1 tablet by mouth 3 times a day with food or milk for 5 days then 3 times a day as needed. #40 and 0 refills Category: Medical
[2017-09-04] MEDS: FERROUS GLUCONATE 324 MG TABLET PO SCH (09:13)
[2017-09-04] MEDS: Prenatal Multivitamin Tab 1 TAB TAB PO SCH (09:15)
[2017-09-04] MEDS: Senna/Docusate Tab 1 TAB TAB PO SCH (09:15)
== END 2017-09-04 09:25 | DRG 765 ==
LOC: ER 19:19 → OBOR 21:02 → OBIP 09-01 01:21
PROVIDERS: ADMIT Student in an Organized Health Care Education/Training Program; ATTEND Obstetrics & Gynecology